=== PATIENT | female | born 1985 | race Caucasian/White ===

== ENCOUNTER 2017-08-03 10:13 | Emergency (ER) | payer MEDICAID ==
--- NOTE | 2017-08-03 10:44 | ED Physician Chart ---
ED Chief Complaint/HPI - Patient Information Date Seen:: 08/03/17 Time Seen:: 10:40 Chief Complaint:: Back pain History of Present Illness:: 32 yo female had left back pain and left buttock pain for 3 days. The patient denied any numbness or weakness. She had an accident falling off a seadoo 5 months ago. Allergies:: Allergies Allergy/AdvReac Type Severity Reaction Status Date / Time No Known Allergies Allergy Verified 08/03/17 10:31 Vitals:: Vital Signs - 8 hr 08/03/17 10:32 Temp 98.0 F HR 75 RR 17 BP 103/60 O2 Sat % 98 ED Review of Systems - Review of Systems General/Constitutional: No fever Skin: No skin lesions Head: No headache ENT: No earache Neck: No neck pain Cardio Vascular: No chest pain Pulmonary: No SOB GI: No nausea Musculoskeletal: No bone or joint pain Psychiatric: No prior psych history ED Past Medical History - Past Medical History Past Medical History: No significant medical hx, Other () Social History: Non Smoker, Alcohol, Illicit Drug Use (marijuana) Surgical History: (x 3), other (breast augmentation) Family Medical History - Family Member Mother History Unknown: Yes Ethnicity: Living Status: Still Living Hx Family Cancer: Yes Hx Family Coronary Artery Disease: No Hx Family Congestive Heart Failure: No Hx Family Hypertension: No Hx Family Stroke: No Hx Family Diabetes: No Hx Family Seizures: No Hx Family Dementia: No Hx Family AIDS: No Hx Family HIV: No Hx Family COPD: No Hx Family Hepatitis: No Hx Family Psychiatric Problems: No Hx Family Tuberculosis: No ED Physical Exam - Physical Examination General/Constitutional: Awake Head: Atraumatic Eyes: PERRL Skin: No skin lesions ENMT: Nasal exam nl Neck: No nuchal rigidity Respiratory: No Wheeze/Rhonchi/Rales Cardio Vascular: RRR, No murmur, gallop, rubs, NL S1 S2 GI: No tenderness/rebounding/guarding Other Extremities comments:: Left mid back tenderness, with mild muscle spasm, no limited ROM Neuro/Psych: Normal motor strength Other Neuro/Psych comments:: B/l patellar reflex 3+, b/l ankle reflex 2+, straight leg raise test negative ED Labs/Radiology/EKG Results - Radiology Results Results: Thoracic spine and lumbar spine X ray: mild scoliosis of thoracic and lumbar spine, lack of thoracic lordosis ED Assessment - Assessment General Assessment: left mid back pain Assessment/Comments:: T-spine, L-spine X ray Toradol 30mg IM x 1 D/c home Ibuprofen 600mg bid x 5 days F/u PCP or return to ER if symptoms worsen ED Septic Shock - . Is Septic Shock (SBP<90, OR Lactate>4 mmol\L) present?: No - <6hrs of presentation: Vital Signs: Vital Signs - 8 hr 08/03/17 10:32 Temp 98.0 F HR 75 RR 17 BP 103/60 O2 Sat % 98 ED Reassessment (Disposition) - Reassessment Reassessment Condition:: Improved - Patient Disposition Discharge/Transfer:: Home ED Discharge Plan - Patient Disposition Admit/Discharge/Transfer: PT DISCHARGED HOME Condition at Disposition: Stable Prescriptions: Ibuprofen [Motrin*] 600 mg PO BID #10 tab Instructions: Low Back Sprain with Rehab-SportsMed, Back Exercises
--- NOTE | 2017-08-04 08:13 | Diagnostic Imaging Report ---
Exam: X-ray thoracic spine HISTORY back pain Multiple views of thoracic spine reviewed. The study demonstrates no evidence of fracture dislocation. The vertebral bodies of normal height with preserved ventricular disc spaces. Very mild scoliotic convexity of midthoracic spine to the right appreciated which might be positional. Clinical correlation recommended. IMPRESSION: Normal examination thoracic spine.
--- NOTE | 2017-08-04 08:14 | Diagnostic Imaging Report ---
Exam: Lumbar sacral spine. HISTORY: Pain. Findings: Multiple views of the lumbar sacral spine reviewed. The study demonstrates vertebral bodies of normal height with preserved intervertebral disc spaces. There is no evidence of spondylolysis or spondylolisthesis. The pedicles are normal. The posterior elements are intact. IMPRESSION: Normal examination lumbar sacral spine.
== END 2017-08-03 12:55 | disposition home or self-care (01) ==
LOC: ER 10:13
DX: M54.89 Other dorsalgia (principal)
CPT/HCPCS: 99285; 96372; 72072; 72110; 81025; J1885